=== PATIENT | male | born 1960 | race Caucasian/White ===

== ENCOUNTER 2019-05-21 19:10 | Emergency (ER) | payer OTHER ==
[~2019-05-21] VITALS: Ht 182.9 cm; Wt 113.6 kg
[2019-05-21 19:19] VITALS: TEMP 99
[2019-05-21] MEDS ORDERED: CEPHALEXIN500 M1 PO (23:35)
[2019-05-21] MEDS ORDERED: NORCO 325 MG-51 TAB PO (23:36)
[2019-05-22] VITALS: BP 143/96; PULSE 78
== END 2019-05-22 00:05 | disposition home or self-care (01) ==
LOC: COL.ER 19:10
DX: S62.633A Displaced fracture of distal phalanx of left middle finger, initial encounter for closed fracture (principal); S61.313A Laceration without foreign body of left middle finger with damage to nail, initial encounter; Z23 Encounter for immunization; W20.8XXA Other cause of strike by thrown, projected or falling object, initial encounter